=== PATIENT | female | born 1945 | race Hispanic/Latino ===

== ENCOUNTER 2018-04-23 14:53 | Outpatient (CLI) | payer MEDICARE ==
--- NOTE | 2018-04-23 16:09 | Mammography Report ---
BILATERAL DIGITAL DIAGNOSTIC MAMMOGRAM with CAD and LEFT BREAST ULTRASOUND: 04/23/18 CLINICAL: Left breast pain. COMPARISON:None. She has not had a mammogram in fifteen years. FINDINGS: The breasts are heterogeneously dense, which may obscure small masses.No mass, suspicious architectural distortion or suspicious calcifications. Ultrasound of the left breast (including all four quadrants and the retroareolar area) was performed and demonstrated a few benign cysts and no solid mass or shadowing. A cyst at 1 o'clock 4 cm from nipple measures 7 x 4 x 7 mm. A cyst at 3 o'clock 6 cm from the nipple measures 7 x 3 x 7 mm. A cyst at 6 o'clock 4 cm from the nipple measures 7 x 6 x 6 mm and a cyst at 9 o'clock 6 cm from the nipple measures 6 x 4 x 5 mm. IMPRESSION: Negative mammogram and a few small benign cysts of the left breast by ultrasound. BI-RADS CATEGORY: 2 -- Benign RECOMMENDATION: Clinical followup and routine mammographic screening in one year. COMMENT: Patient follow-up letters are generated by our [employer] application.
== END 2018-04-23 14:54 | disposition home or self-care (01) ==
LOC: SPVWC 14:53
PROVIDERS: ATTEND Nurse Practitioner
DX: N60.02 Solitary cyst of left breast (principal)
CPT/HCPCS: 77066